=== PATIENT | female | born 1975 | race Native Hawaiian/Other Pacific Islander ===

== ENCOUNTER 2021-05-28 04:26 | Inpatient (IN) | payer SELFPAY ==
[~2021-05-28 04:26] MED LIST: BUPIVACAINE/PF (0.5%) 5 MG/1 ML 30 ML VIAL INFILTRATI ONE; LIDOCAINE (1%) 10 MG/1 ML VIAL 20 ML MDV INFILTRATI ONE; SODIUM CHLORIDE 0.9% IRR 1,500 ML BOTTLE IR ONE
[2021-05-28] MEDS ORDERED: ONDANSETRON 4 MG/2 ML INJ ONE ×2 (04:44→12:13)
[2021-05-28] MEDS ORDERED: SODIUM CHLORIDE 0.9% 1000 ML 1,000 ML ONE (04:45)
[2021-05-28] MEDS ORDERED: MORPHINE 4 MG/1 ML INJ ONE (04:45)
[2021-05-28] MEDS ORDERED: SODIUM CHLORIDE 0.9% 1000 ML 1,000 ML IV ONE (05:11)
[2021-05-28] MEDS ORDERED: MORPHINE 4 MG/1 ML INJ IV ONE (05:11)
[2021-05-28] MEDS ORDERED: ONDANSETRON 4 MG/2 ML INJ IV ONE ×2 (05:11→06:25)
[2021-05-28 05:18] LABS: Basophils # (Auto) 0.1 K/mm3 (0.0-0.1); Basophils % (Auto) 0.4 % (0.0-1.8); Eosinophils # (Auto) 0.2 K/mm3 (0.0-0.4); Eosinophils % (Auto) 1.4 % (0.0-4.3); Hematocrit 40.9 % (30.3-42.9); Hemoglobin 13.7 gm/dl (10.1-14.3); Lymphocytes # (Auto) 2.2 K/mm3 (1.2-5.4); Lymphocytes % (Auto) 16.9 % (13.4-35.0); Mean Corpuscular HGB Conc 33 % (30-34); Mean Corpuscular Volume 87 fl (79-97); Monocytes # (Auto) 0.6 K/mm3 (0.0-0.8); Monocytes % (Auto) 4.7 % (0.0-7.3); Platelet Count 387 K/mm3 (140-440); Red Cell Distribution Width 13.7 % (13.2-15.2)
[2021-05-28 05:30] LABS: Alanine Aminotransferase 19 units/L (7-56); Albumin 4.4 g/dL (3.9-5); Blood Urea Nitrogen 14 mg/dL (7-17); Calcium 8.8 mg/dL (8.4-10.2); Hemolysis Index 51
--- NOTE | 2021-05-28 05:37 | XRay Report ---
LEFT WRIST 3 VIEWS INDICATION / CLINICAL INFORMATION: pain on use palpation COMPARISON: None available. FINDINGS: BONES / JOINT(S): No acute fracture or subluxation. No significant arthritis. SOFT TISSUES: No significant abnormality. ADDITIONAL FINDINGS: None. Signer Name: Hi Echavarria MD Signed: 05/28/2021 5:32 AM Workstation Name: [id number]
[2021-05-28 05:43] LABS: BUN/Creatinine Ratio 23
--- NOTE | 2021-05-28 06:19 | Cat Scan Report ---
CT ABDOMEN AND PELVIS WITH IV CONTRAST INDICATION: R.L.Q. abdominal pain with nausea and vomiting. COMPARISON: None available. TECHNIQUE: All CT scans at this facility use dose modulation, automated exposure control, iterative reconstructi on or weight based dosing, when appropriate, to reduce radiation dose to as low as reasonably achieva ble. FINDINGS: Lung Bases: No significant abnormality. Skeletal System: No acute abnormality. ABDOMEN: Liver: No significant abnormality. Gallbladder: Several small gallstones are noted. Bile Ducts: No significant abnormality. Adrenals: No significant abnormality. Right Kidney: No significant abnormality. Left Kidney: No significant abnormality. Pancreas: No significant abnormality. Spleen: No significant abnormality. Upper GI tract: No significant abnormality. Lymph Nodes: No significant adenopathy. Aorta: No significant abnormality. Additional Findings: No significant abnormality. PELVIS: Colon: No significant abnormality. Urinary Bladder and Distal Ureters: No significant abnormality. Appendix: No significant abnormality. Lymph Nodes: No significant adenopathy. Additional Findings: There are 2 enhancing foci within the within the anterior uterine fundus, likely fibroids. IMPRESSION: 1. No acute process in the abdomen or pelvis. 2. Incidental findings, as above. Signer Name: Hi Echavarria MD Signed: 05/28/2021 6:14 AM Workstation Name: [id number]
[2021-05-28] MEDS ORDERED: HYDROmorphone 1 MG/1 ML INJ IV ONE (06:25)
--- NOTE | 2021-05-28 06:30 | Emergency Department Report ---
ED Abdominal Pain HPI - General Chief Complaint: Abdominal Pain Stated Complaint: ABD PAIN/POSS GALLBLADDER Time Seen by Provider: 05/28/21 06:13 Source: patient, family Mode of arrival: Ambulatory Limitations: No Limitations - History of Present Illness Initial Comments: 46-year-old female presents to the ER today with complaints of upper abdominal pain mostly right upper quadrant. Onset last night. Patient states that the pain has been constant and radiates into her back. She reports nausea with multiple episodes of vomiting. She denies any bowel changes. She reports mild dysuria, but no other UTI symptoms. She denies any chest pain or shortness of breath. She denies any fever or chills. She reports similar symptoms in the past about 2 to 3 years ago and she was diagnosed with gallstones but she never followed up with a general surgeon. She is currently on her menstrual cycle. MD Complaint: abdominal pain -: Last night Severity scale (0 -10): 5 - Related Data Allergies Allergy/AdvReac Type Severity Reaction Status Date / Time No Known Allergies Allergy Verified 05/28/21 08:54 ED Review of Systems ROS: Stated complaint: ABD PAIN/POSS GALLBLADDER Other details as noted in HPI Comment: All other systems reviewed and negative Constitutional: denies: chills, fever ENT: denies: ear pain, throat pain Respiratory: denies: cough, shortness of breath, wheezing Cardiovascular: denies: chest pain, palpitations Gastrointestinal: abdominal pain, nausea, vomiting. denies: diarrhea, constipation, hematemesis, melena, hematochezia Genitourinary: denies: urgency, dysuria, frequency, hematuria, discharge, abnormal menses, dyspareunia Musculoskeletal: denies: back pain, joint swelling, arthralgia, myalgia Skin: denies: rash, lesions, change in color, change in hair/nails, pruritus Neurological: denies: headache, weakness, numbness, paresthesias, confusion, abnormal gait, vertigo Psychiatric: denies: anxiety, depression, auditory hallucinations, visual hallucinations, homicidal thoughts, suicidal thoughts Hematological/Lymphatic: denies: easy bleeding, easy bruising, swollen glands ED Past Medical Hx - Past Medical History Previous Medical History?: No - Surgical History Past Surgical History?: Yes Additional Surgical History: C-Sec x 2 ED Physical Exam - General Limitations: No Limitations General appearance: alert, in distress (Patient appears to be uncomfortable and in pain) - Eye Eye exam: Present: normal appearance, PERRL, EOMI Pupils: Present: normal accommodation - Neck Neck exam: Present: normal inspection, full ROM - Respiratory Respiratory exam: Absent: respiratory distress - Cardiovascular Cardiovascular Exam: Present: regular rate - GI/Abdominal GI/Abdominal exam: Present: soft, tenderness (Moderate tenderness to the right upper quadrant epigastric area with some mild guarding but no rebound), g uarding. Absent: distended, rebound, rigid - Back Exam Back exam: Present: normal inspection - Neurological Exam Neurological exam: Present: alert, oriented X3, CN II-XII intact, normal gait - Psychiatric Psychiatric exam: Present: normal affect, normal mood - Skin Skin exam: Present: intact ED Course Vital Signs 05/28/21 05/28/21 05/28/21 04:32 06:37 08:50 Temperature 97.6 F Pulse Rate 70 Respiratory 18 16 Rate Blood Pressure 131/80 [Right] O2 Sat by Pulse 99 99 Oximetry 05/28/21 05/28/21 09:13 09:39 Temperature Pulse Rate 63 63 Respiratory 16 15 Rate Blood Pressure 117/65 117/85 [Right] O2 Sat by Pulse 99 98 Oximetry ED Medical Decision Making - Lab Data Result diagrams: 05/28/21 04:57 05/28/21 04:57 Laboratory Tests 05/28/21 05/28/21 05/28/21 04:57 04:57 04:57 WBC 13.2 H RBC 4.70 Hgb 13.7 Hct 40.9 MCV 87 MCH 29 MCHC 33 RDW 13.7 Plt Count 387 Lymph % (Auto) 16.9 [place] % (Auto) 4.7 Eos % (Auto) 1.4 Baso % (Auto) 0.4 Lymph # (Auto) 2.2 [place] # (Auto) 0.6 Eos # (Auto) 0.2 Baso # (Auto) 0.1 Seg Neutrophils % 76.6 H Seg Neutrophils # 10.1 H Sodium 138 Potassium 4.2 Chloride 103.9 Carbon Dioxide 17 L Anion Gap 21 BUN 14 Creatinine 0.6 Estimated GFR > 60 BUN/Creatinine Ratio 23 Glucose 121 H Calcium 8.8 Total Bilirubin 0.20 AST 20 ALT 19 Alkaline Phosphatase 72 Total Protein 7.7 Albumin 4.4 Albumin/Globulin Ratio 1.3 Lipase HCG, Quant < 2 05/28/21 04:57 WBC RBC Hgb Hct MCV MCH MCHC RDW Plt Count Lymph % (Auto) [place] % (Auto) Eos % (Auto) Baso % (Auto) Lymph # (Auto) [place] # (Auto) Eos # (Auto) Baso # (Auto) Seg Neutrophils % Seg Neutrophils # Sodium Potassium Chloride Carbon Dioxide Anion Gap BUN Creatinine Estimated GFR BUN/Creatinine Ratio Glucose Calcium Total Bilirubin AST ALT Alkaline Phosphatase Total Protein Albumin Albumin/Globulin Ratio Lipase 63 H HCG, Quant - Radiology Data Patient: JANES VARELA MR#: [id number] : 1975 Acct:[id number] Age/Sex: 46 / F ADM Date: 05/28/21 Loc: ED Attending Dr: Ordering Physician: ARA JEAN Date of Service: 05/28/21 Procedure(s): CT abdomen pelvis w con Accession Number(s): [id number] cc: ARA JEAN CT ABDOMEN AND PELVIS WITH IV CONTRAST INDICATION: R.L.Q. abdominal pain with nausea and vomiting. COMPARISON: None available. TECHNIQUE: All CT scans at this facility use dose modulation, automated exposure control, iterative reconstruction or weight based dosing, when appropriate, to reduce radiation dose to as low as reasonably achievable. FINDINGS: Lung Bases: No significant abnormality. Skeletal System: No acute abnormality. ABDOMEN: Liver: No significant abnormality. Gallbladder: Several small gallstones are noted. Bile Ducts: No significant abnormality. Adrenals: No significant abnormality. Right Kidney: No significant abnormality. Left Kidney: No significant abnormality. Pancreas: No significant abnormality. Spleen: No significant abnormality. Upper GI tract: No significant abnormality. Lymph Nodes: No significant adenopathy. Aorta: No significant abnormality. Additional Findings: No significant abnormality. PELVIS: Colon: No significant abnormality. Urinary Bladder and Distal Ureters: No significant abnormality. Appendix: No significant abnormality. Lymph Nodes: No significant adenopathy. Additional Findings: There are 2 enhancing foci within the within the anterior uterine fundus, likely fibroids. IMPRESSION: 1. No acute process in the abdomen or pelvis. 2. Incidental findings, as above. Signer Name: Hi Echavarria MD Signed: 05/28/2021 6:14 AM Workstation Name: [id number] Transcribed By: CARMEN Dictated By: Hi Echavarria MD Electronically Authenticated By: Hi Echavarria MD Signed Date/Time: 05/28/2114 DD/ 8 TD/TT: Patient: JANES VARELA MR#: [id number] : 1975 Acct:[id number] Age/Sex: 46 / F ADM Date: 05/28/21 Loc: ED Attending Dr: Ordering Physician: BROOKE INIGUEZ Date of Service: 05/28/21 Procedure(s): US abdomen limited Accession Number(s): [id number] cc: BROOKE INIGUEZ ULTRASOUND ABDOMEN, LIMITED (RIGHT UPPER QUADRANT) INDICATION / CLINICAL INFORMATION: severe RUQ pain. COMPARISON: CT earlier today. FINDINGS: PANCREAS: Visualized portion shows no significant abnormality. LIVER: No significant abnormality. Normal hepatopedal blood flow in the main portal vein. GALLBLADDER: There are multiple small gallstones. BILE DUCTS: No significant abnormality. Common bile duct measures 7 mm. FREE FLUID: None. ADDITIONAL FINDINGS: None. IMPRESSION: 1. Cholelithiasis. No gallbladder wall edema or pericholecystic fluid. 2. The scale manager measured the common duct at 7 mm. However, on the CT from earlier the same day, the common duct is normal in caliber. Signer Name: Hi Echavarria MD Signed: 05/28/2021 7:23 AM Workstation Name: [id number] Transcribed By: Dictated By: Hi Echavarria MD Electronically Authenticated By: Hi Echavarria MD Signed Date/Time: 05/28/2123 DD/ 0 TD/TT: - Medical Decision Making 0628: Labs, meds and CT ordered as part of MSE screening prior to me seeing the patient. Labs reviewed showed mild leukocytosis, but otherwise unremarkable; CT abd and pelvis with IV contrast shows multiple gallstones but otherwise unremarkable. Patient did receive IV morphine and Zofran which she states did help initially but she states that the pain has returned and she does appear to be uncomfortable and in pain. Dilaudid 1 mg IV as well as Zofran 4 mg ordered and gallbladder ultrasound ordered. 0745: Gallbladder ultrasound reviewedCholelithiasis. No gallbladder wall edema or pericholecystic fluid. 2. The scale manager measured the common duct at 7 mm. However, on the CT from earlier the same day, the common duct is normal in caliber. 0759: Patient still in pain despite Dilaudid 1mg. Discussed case with Dr. Fleming, general surgeon java front end web developer, given patient pain is uncontrollable, there are multiple gallstones, and mildly elevated white count, patient will be admitted to the hospital and she will consult on patient for surgery. 0807: Discussed case with hospitalist Dr. Doshi, for admission. Critical care attestation.: If time is entered above; I have spent that time in minutes in the direct care of this critically ill patient, excluding procedure time. ED Disposition Clinical Impression: Cholelithiases, Leukocytosis, Abdominal pain Disposition: ADMITTED INPATIENT Is pt being admited?: Yes Does the pt Need Aspirin: No Time of Disposition: 07:39
[2021-05-28 06:36] LABS: Bilirubin,Urine NEG (Negative); Blood,Urine LG (Negative); Color,Urine Straw (Yellow); Mucus,Urine FEW /HPF; Protein,Urine <15 mg/dL mg/dL (Negative); Urobilinogen,Urine < 2.0 mg/dL (<2.0)
--- NOTE | 2021-05-28 07:28 | Ultrasound Report ---
ULTRASOUND ABDOMEN, LIMITED (RIGHT UPPER QUADRANT) INDICATION / CLINICAL INFORMATION: severe RUQ pain. COMPARISON: CT earlier today. FINDINGS: PANCREAS: Visualized portion shows no significant abnormality. LIVER: No significant abnormality. Normal hepatopedal blood flow in the main portal vein. GALLBLADDER: There are multiple small gallstones. BILE DUCTS: No significant abnormality. Common bile duct measures 7 mm. FREE FLUID: None. ADDITIONAL FINDINGS: None. IMPRESSION: 1. Cholelithiasis. No gallbladder wall edema or pericholecystic fluid. 2. The director property measured the common duct at 7 mm. However, on the CT from earlier the same day, th e common duct is normal in caliber. Signer Name: Hi Echavarria MD Signed: 05/28/2021 7:23 AM Workstation Name: [id number]
[2021-05-28] MEDS ORDERED: KETOROLAC 30 MG/1 ML INJ IV ONE (07:44)
--- NOTE | 2021-05-28 09:33 | History and Physical Report ---
History of Present Illness Date of examination: 05/28/21 Date of admission: 05/28/21 Chief complaint: Abdominal pain History of present illness: Patient is 46-year-old female with past medical history of x2, breast biopsy, presents to the ER today with complaints of upper abdominal pain mostly right upper quadrant. Onset last night. Patient states that the pain has been constant and radiates into her back. She reports nausea with multiple episodes of vomiting. She denies any bowel changes. She reports mild dysuria, but no other UTI symptoms. She denies any chest pain or shortness of breath. She denies any fever or chills. She reports similar symptoms in the past about 2 to 3 years ago and she was diagnosed with gallstones but she never followed up with a general surgeon. She is currently on her menstrual cycle. Based on the medications that she has on her which includes dicyclomine and Zofran it appears that she has been having repeated nausea vomiting for a few months now as the medication is dated for December of last year, with possible IBS hx although she is unable to confirm. Her is at the bedside and assisted with interpreting Past History Past Surgical History: , Other (Breast biopsy) Social history: full code Family history: no significant family history Medications and Allergies Allergies Allergy/AdvReac Type Severity Reaction Status Date / Time No Known Allergies Allergy Verified 05/28/21 08:54 Active Meds: Active Medications Acetaminophen (Acetaminophen 325 Mg Tab) 650 mg PO Q4H PRN PRN Reason: Pain MILD(1-3)/Fever >100.5/GARCIA Albuterol (Albuterol 2.5 Mg/3 Ml Nebu) 2.5 mg IH Q4HRT PRN PRN Reason: Shortness Of Breath Famotidine (Famotidine 20 Mg/2 Ml Inj) 10 mg IV BID WENDIE Heparin Sodium (Porcine) (Heparin 5,000 Unit/1 Ml Vial) 5,000 unit SUB-Q Q8HR WENDIE Dextrose/Sodium Chloride (D5/0.45ns) 1,000 mls @ 125 mls/hr IV DIRECT WENDIE Morphine Sulfate (Morphine 2 Mg/1 Ml Inj) 2 mg IV Q4H PRN PRN Reason: Pain, Moderate (4-6) Naloxone HCl (Naloxone 0.4 Mg/1 Ml Inj) 0.1 mg IV Q2MIN PRN PRN Reason: Res Rate </= 8 or 02 SAT < 92% Ondansetron HCl (Ondansetron 4 Mg/2 Ml Inj) 4 mg IV Q4H PRN PRN Reason: Nausea And Vomiting Sodium Chloride (Sodium Chloride 0.9% 10 Ml Flush Syringe) 10 ml IV BID WENDIE Sodium Chloride (Sodium Chloride 0.9% 10 Ml Flush Syringe) 10 ml IV PRN PRN PRN Reason: LINE FLUSH Review of Systems All systems: negative Gastrointestinal: abdominal pain, nausea, vomiting Exam - Physical Exam Narrative exam: VITAL SIGNS: Reviewed. GENERAL: The patient appears normally developed, Vital signs as documented. HEAD: No signs of head trauma. EYES: Pupils are equal. Extraocular motions intact. EARS: Hearing grossly intact. MOUTH: Oropharynx is normal. NECK: No adenopathy, no JVD. CHEST: Chest with clear breath sounds bilaterally. No wheezes, rales, or rhonchi. CARDIAC: Regular rate and rhythm. S1 and S2, without murmurs, gallops, or rubs. VASCULAR: No Edema. Peripheral pulses normal and equal in all extremities. ABDOMEN: Soft, tender right upper quadrant with mild guarding otherwise NON distended. No rebound or guarding, and no masses palpated. Bowel Sounds normal. MUSCULOSKELETAL: Good range of motion of all major joints. Extremities without clubbing, cyanosis or edema. NEUROLOGIC EXAM: Alert and oriented x 3 No focal sensory or strength deficits. Speech normal. Follows commands. PSYCHIATRIC: Mood normal. SKIN: detail exam as documented in skin assessment - Constitutional Vitals: Temp Pulse Resp BP Pulse Ox 97.6 F 63 16 117/65 99 05/28/21 04:32 05/28/21 09:13 05/28/21 09:13 05/28/21 09:13 05/28/21 09:13 Results - Labs CBC & Chem 7: 05/28/21 04:57 05/28/21 04:57 Labs: Laboratory Last Values WBC 13.2 K/mm3 (4.5-11.0) H 05/28/21 04:57 RBC 4.70 M/mm3 (3.65-5.03) 05/28/21 04:57 Hgb 13.7 gm/dl (10.1-14.3) 05/28/21 04:57 Hct 40.9 % (30.3-42.9) 05/28/21 04:57 MCV 87 fl (79-97) 05/28/21 04:57 MCH 29 pg (28-32) 05/28/21 04:57 MCHC 33 % (30-34) 05/28/21 04:57 RDW 13.7 % (13.2-15.2) 05/28/21 04:57 Plt Count 387 K/mm3 (140-440) 05/28/21 04:57 Lymph % (Auto) 16.9 % (13.4-35.0) 05/28/21 04:57 [place] % (Auto) 4.7 % (0.0-7.3) 05/28/21 04:57 Eos % (Auto) 1.4 % (0.0-4.3) 05/28/21 04:57 Baso % (Auto) 0.4 % (0.0-1.8) 05/28/21 04:57 Lymph # (Auto) 2.2 K/mm3 (1.2-5.4) 05/28/21 04:57 [place] # (Auto) 0.6 K/mm3 (0.0-0.8) 05/28/21 04:57 Eos # (Auto) 0.2 K/mm3 (0.0-0.4) 05/28/21 04:57 Baso # (Auto) 0.1 K/mm3 (0.0-0.1) 05/28/21 04:57 Seg Neutrophils % 76.6 % (40.0-70.0) H 05/28/21 04:57 Seg Neutrophils # 10.1 K/mm3 (1.8-7.7) H 05/28/21 04:57 Sodium 138 mmol/L (137-145) 05/28/21 04:57 Potassium 4.2 mmol/L (3.6-5.0) 05/28/21 04:57 Chloride 103.9 mmol/L (98-107) 05/28/21 04:57 Carbon Dioxide 17 mmol/L (22-30) L 05/28/21 04:57 Anion Gap 21 mmol/L 05/28/21 04:57 BUN 14 mg/dL (7-17) 05/28/21 04:57 Creatinine 0.6 mg/dL (0.6-1.2) 05/28/21 04:57 Estimated GFR > 60 ml/min 05/28/21 04:57 BUN/Creatinine Ratio 23 % 05/28/21 04:57 Glucose 121 mg/dL (65-100) H 05/28/21 04:57 Calcium 8.8 mg/dL (8.4-10.2) 05/28/21 04:57 Total Bilirubin 0.20 mg/dL (0.1-1.2) 05/28/21 04:57 AST 20 units/L (5-40) 05/28/21 04:57 ALT 19 units/L (7-56) 05/28/21 04:57 Alkaline Phosphatase 72 units/L (35-129) 05/28/21 04:57 Total Protein 7.7 g/dL (6.3-8.2) 05/28/21 04:57 Albumin 4.4 g/dL (3.9-5) 05/28/21 04:57 Albumin/Globulin Ratio 1.3 % 05/28/21 04:57 Lipase 63 units/L (13-60) H 05/28/21 04:57 HCG, Quant < 2 mIU/mL (0-4) 05/28/21 04:57 Urine Color Straw (Yellow) 05/28/21 Unknown Urine Turbidity Clear (Clear) 05/28/21 Unknown Urine pH 6.0 (5.0-7.0) 05/28/21 Unknown Ur Specific [place] 1.035 (1.003-1.030) H 05/28/21 Unknown Urine Protein <15 mg/dl mg/dL (Negative) 05/28/21 Unknown Urine Glucose (UA) Neg mg/dL (Negative) 05/28/21 Unknown Urine Ketones Neg mg/dL (Negative) 05/28/21 Unknown Urine Blood Lg (Negative) 05/28/21 Unknown Urine Nitrite Neg (Negative) 05/28/21 Unknown Urine Bilirubin Neg (Negative) 05/28/21 Unknown Urine Urobilinogen < 2.0 mg/dL (<2.0) 05/28/21 Unknown Ur Leukocyte Esterase Neg (Negative) 05/28/21 Unknown Urine WBC (Auto) 2.0 /HPF (0.0-6.0) 05/28/21 Unknown Urine RBC (Auto) 55.0 /HPF (0.0-6.0) 05/28/21 Unknown U Epithel Cells (Auto) 7.0 /HPF (0-13.0) 05/28/21 Unknown Urine Mucus Few /HPF 05/28/21 Unknown Assessment and Plan Assessment and plan: Patient is 46-year-old female with past medical history of x2, breast biopsy, presents to the ER today with complaints of upper abdominal pain mostly right upper quadrant. Onset last night. Patient states that the pain has been constant and radiates into her back. She reports nausea with multiple episodes of vomiting. She denies any bowel changes. She reports mild dysuria, but no other UTI symptoms. She denies any chest pain or shortness of breath. She denies any fever or chills. She reports similar symptoms in the past about 2 to 3 years ago and she was diagnosed with gallstones but she never followed up with a general surgeon. She is currently on her menstrual cycle. Based on the medications that she has on her which includes dicyclomine and Zofran it appears that she has been having repeated nausea vomiting for a few months now as the medication is dated for December of last year, with possible IBS hx although she is unable to confirm. Her is at the bedside and assisted with interpreting CT ABDOMEN AND PELVIS WITH IV CONTRAST 1. No acute process in the abdomen or pelvis. 2. Incidental findings, as above. " Showed several small gallstones" 1. Cholelithiasis. No gallbladder wall edema or pericholecystic fluid. 2. The label designer measured the common duct at 7 mm. However, on the CT from earlier the same day, the common duct is normal in caliber. US: Gallbladder ultrasound reviewed Cholelithiasis. No gallbladder wall edema or pericholecystic fluid. 2. The label designer measured the common duct at 7 mm. However, on the CT from earlier the same day, the common duct is normal in caliber. Abdominal pain with likely symptomatic cholelithiasis Cholelithiasis symptomatic Leukocytosis Systematic inflammatory response syndrome Metabolic acidosis Possible IBS Plan Admit to MedSurg Surgical consult Antiemetics Empiric antibiotics We will keep n.p.o. for possible surgery D5 normal saline for support Cultures Pain control Following surgical evaluation patient may benefit from GI evaluation this could be outpatient Plan of care discussed extensively with patient and DVT and GI prophylaxis Advance Directives: Yes Plan of care discussed with patient/family: Yes
[2021-05-28] MEDS ORDERED: AZITHROMYCIN/NS 500 MG/250 ML 500 MG/250 ML BAG IV SCH (10:00)
[2021-05-28] MEDS ORDERED: NALOXONE 0.4 MG/1 ML INJ IV PRN (10:00)
[2021-05-28] MEDS ORDERED: cefTRIAXone/NS 1 GM/50 ML 1 GM/50 ML BAG IV SCH (10:00)
[2021-05-28] MEDS ORDERED: ACETAMINOPHEN 325 MG TAB PO PRN (10:00)
--- NOTE | 2021-05-28 10:28 | Consultation ---
History of Present Illness Consult date: 05/28/21 Reason for consult: gallstones - History of present illness History of present illness: Presented to the emergency room with 2-day history of worsening right upper quadrant epigastric pain. She says she was diagnosed with gallstones several years ago but did not seek surgery at that time. About 3 months ago she began having mild right upper quadrant symptoms and she was instructed to go to the emergency room if the pain became worse. She is been having nausea and vomiting with last episode this morning. The pain is approximately 7-8 out of 10, and relieved when she does not move around. Patient had a CT scan which showed gallstones with no evidence of cholecystitis, and an ultrasound with similar findings. Past History Past Medical History: No medical history Past Surgical History: , Other (Breast biopsy) Social history: full code Family history: no significant family history Medications and Allergies Allergies Allergy/AdvReac Type Severity Reaction Status Date / Time No Known Allergies Allergy Verified 05/28/21 08:54 Active Meds: Active Medications Acetaminophen (Acetaminophen 325 Mg Tab) 650 mg PO Q4H PRN PRN Reason: Pain MILD(1-3)/Fever >100.5/GARCIA Albuterol (Albuterol 2.5 Mg/3 Ml Nebu) 2.5 mg IH Q4HRT PRN PRN Reason: Shortness Of Breath Famotidine (Famotidine 20 Mg/2 Ml Inj) 10 mg IV BID WENDIE Heparin Sodium (Porcine) (Heparin 5,000 Unit/1 Ml Vial) 5,000 unit SUB-Q Q8HR WENDIE Dextrose/Sodium Chloride (D5/0.45ns) 1,000 mls @ 125 mls/hr IV DIRECT WENDIE Ceftriaxone Sodium (Rocephin/Ns 1 Gm/50 Ml) 1 gm in 50 mls @ 100 mls/hr IV Q24H WENDIE; Protocol Azithromycin (Zithromax/Ns) 500 mg in 250 mls @ 250 mls/hr IV Q24H WENDIE Morphine Sulfate (Morphine 2 Mg/1 Ml Inj) 2 mg IV Q4H PRN PRN Reason: Pain, Moderate (4-6) Naloxone HCl (Naloxone 0.4 Mg/1 Ml Inj) 0.1 mg IV Q2MIN PRN PRN Reason: Res Rate </= 8 or 02 SAT < 92% Ondansetron HCl (Ondansetron 4 Mg/2 Ml Inj) 4 mg IV Q4H PRN PRN Reason: Nausea And Vomiting Sodium Chloride (Sodium Chloride 0.9% 10 Ml Flush Syringe) 10 ml IV BID WENDIE Sodium Chloride (Sodium Chloride 0.9% 10 Ml Flush Syringe) 10 ml IV PRN PRN PRN Reason: LINE FLUSH Review of Systems All systems: negative - Gastrointestinal abdominal pain, nausea, vomiting Exam Vital Signs Temp Pulse Resp BP Pulse Ox 97.6 F 70 18 131/80 99 05/28/21 04:32 05/28/21 04:32 05/28/21 04:32 05/28/21 04:32 05/28/21 04:32 - General physical appearance Positive: well developed, well nourished, no distress, moderate pain - Eyes Negative: icteric - Respiratory Positive: normal expansion, normal respiratory effort - Cardiovascular Heart Sounds: Present: S1 & S2 - Extremities Extremities: no ischemia - Abdomen Abdomen: Present: soft, other (Tender to palpation right upper quadrant epigastric area). Absent: guarding, rigid Results - Labs 05/28/21 04:57 05/28/21 04:57 Abnormal lab results 05/28/21 05/28/21 05/28/21 Range/Units 04:57 04:57 04:57 WBC 13.2 H (4.5-11.0) K/mm3 Seg Neutrophils % 76.6 H (40.0-70.0) % Seg Neutrophils # 10.1 H (1.8-7.7) K/mm3 Carbon Dioxide 17 L (22-30) mmol/L Glucose 121 H (65-100) mg/dL Lipase 63 H (13-60) units/L Ur Specific [place] (1.003-1.030) 05/28/21 Range/Units Unknown WBC (4.5-11.0) K/mm3 Seg Neutrophils % (40.0-70.0) % Seg Neutrophils # (1.8-7.7) K/mm3 Carbon Dioxide (22-30) mmol/L Glucose (65-100) mg/dL Lipase (13-60) units/L Ur Specific [place] 1.035 H (1.003-1.030) Diabetes panel 05/28/21 Range/Units 04:57 Sodium 138 (137-145) mmol/L Potassium 4.2 (3.6-5.0) mmol/L Chloride 103.9 (98-107) mmol/L Carbon Dioxide 17 L (22-30) mmol/L BUN 14 (7-17) mg/dL Creatinine 0.6 (0.6-1.2) mg/dL Glucose 121 H (65-100) mg/dL Calcium 8.8 (8.4-10.2) mg/dL AST 20 (5-40) units/L ALT 19 (7-56) units/L Alkaline Phosphatase 72 (35-129) units/L Total Protein 7.7 (6.3-8.2) g/dL Albumin 4.4 (3.9-5) g/dL Calcium panel 05/28/21 Range/Units 04:57 Calcium 8.8 (8.4-10.2) mg/dL Albumin 4.4 (3.9-5) g/dL Pituitary panel 05/28/21 Range/Units 04:57 Sodium 138 (137-145) mmol/L Potassium 4.2 (3.6-5.0) mmol/L Chloride 103.9 (98-107) mmol/L Carbon Dioxide 17 L (22-30) mmol/L BUN 14 (7-17) mg/dL Creatinine 0.6 (0.6-1.2) mg/dL Glucose 121 H (65-100) mg/dL Calcium 8.8 (8.4-10.2) mg/dL Adrenal panel 05/28/21 Range/Units 04:57 Sodium 138 (137-145) mmol/L Potassium 4.2 (3.6-5.0) mmol/L Chloride 103.9 (98-107) mmol/L Carbon Dioxide 17 L (22-30) mmol/L BUN 14 (7-17) mg/dL Creatinine 0.6 (0.6-1.2) mg/dL Glucose 121 H (65-100) mg/dL Calcium 8.8 (8.4-10.2) mg/dL Total Bilirubin 0.20 (0.1-1.2) mg/dL AST 20 (5-40) units/L ALT 19 (7-56) units/L Alkaline Phosphatase 72 (35-129) units/L Total Protein 7.7 (6.3-8.2) g/dL Albumin 4.4 (3.9-5) g/dL - Imaging CT scan - abdomen: report reviewed, image reviewed CT scan - pelvis: report reviewed, image reviewed US - abdomen: report reviewed, image reviewed Assessment and Plan 46-year-old female with symptomatic cholelithiasis possible cholecystitis. Patient is consented for laparoscopic cholecystectomy. Patient speaks some [place], however her is fluent in [place] and help facilitate the conversation. Patient for laparoscopic cholecystectomy today.
[2021-05-28] MEDS ORDERED: LIDOCAINE (1%) 10 MG/1 ML VIAL 20 ML MDV ONE (10:56)
[2021-05-28] MEDS ORDERED: BUPIVACAINE/PF (0.5%) 5 MG/1 ML 30 ML VIAL INFILTRATI ONE ×2 (10:56→12:04)
[2021-05-28] MEDS ORDERED: fentaNYL 100 MCG/2 ML INJ ONE (11:17)
[2021-05-28] MEDS ORDERED: MIDAZOLAM 2 MG/2 ML INJ ONE (11:17)
[2021-05-28] MEDS ORDERED: propofoL 200 MG/20 ML VIAL IV ONE (11:18)
[2021-05-28] MEDS ORDERED: ceFAZolin/Water 2 GM/20 ML 2 GM/20 ML SYRINGE IV ONE (11:25)
[2021-05-28] MEDS ORDERED: KETAMINE/STERILE WATER 50 MG/ML SYRINGE ONE (11:36)
[2021-05-28] MEDS ORDERED: ALBUTEROL 2.5 MG/3 ML NEBU IH PRN (12:00)
[2021-05-28] MEDS ORDERED: LIDOCAINE (1%) 10 MG/1 ML VIAL 20 ML MDV INFILTRATI ONE (12:04)
[2021-05-28] MEDS ORDERED: SODIUM CHLORIDE 0.9% IRR 1,500 ML BOTTLE IR ONE (12:04)
[2021-05-28] MEDS ORDERED: SODIUM CHLORIDE 0.9% IRRIG SOLN 2000 ML IR ONE (12:04)
[2021-05-28] MEDS ORDERED: dexAMETHasone 20 MG/5 ML VIAL ONE (12:12)
[2021-05-28] MEDS ORDERED: ROCURONIUM 50 MG/5 ML INJ IV ONE ×2 (12:13→14:28)
[2021-05-28] MEDS ORDERED: LACTATED RINGERS 1,000 ML ONE ×2 (12:13→14:28)
[2021-05-28] MEDS ORDERED: KETOROLAC 30 MG/1 ML INJ ONE (12:13)
[2021-05-28] MEDS ORDERED: HYDROmorphone 1 MG/1 ML INJ ONE (12:20)
[2021-05-28] MEDS ORDERED: SUGAMMADEX SODIUM 200 MG/2 ML VIAL IV ONE (14:39)
--- NOTE | 2021-05-28 15:30 | Anesthesia Consultation ---
Anesthesia Consult and Med Hx Date of service: 05/28/21 - Airway Anesthetic Teeth Evaluation: Good ROM Head & Neck: Adequate Mental/Hyoid Distance: Adequate Mallampati Class: Class II Intubation Access Assessment: Probably Good - Pre-Operative Health Status ASA Pre-Surgery Classification: ASA1 Proposed Anesthetic Plan: General - Pulmonary Hx Respiratory Symptoms: No - Cardiovascular System Hx Hypertension: No - Central Nervous System CVA: No - Endocrine Hx Renal Disease: No Hx Liver Disease: No Hx Insulin Dependent Diabetes: No Hx Non-Insulin Dependent Diabetes: No Hx Thyroid Disease: No - Other Systems Hx Obesity: No
--- NOTE | 2021-05-28 15:31 | Operative Report ---
Operative Report Operative Report: Procedure Performed: Lap cholecystectomy Dates of Service: 05/28/2021 Primary Surgeon: Chencho Fleming MD Assisted by: Lety Tolbert DO Anesthesia: General Pre-Operative Diagnosis: cholelithiasis/ cholecystitis Post-Operative Diagnosis: Same Indications for Procedure: 41-year-old female presented to the emergency room with right upper quadrant epigastric pain. CT scan abdominal ultrasound showed cholelithiasis with cholecystitis. Patient was consented for laparoscopic chol ecystectomy. Description of Procedure(s): The patient was brought to the operating room and underwent general anesthesia after lower extremity SCD were placed. The abdomen was prepped and draped in the standard fashion. IV antibiotics were given and a time out was performed. Using a veress needle via a stab incision in the left subcostal region, the abdomen was insuflated to a pressure of 15mmHg. Using optivew technique, a 5mm trocar was placed just superior and to the left of the umbilicus. There was no gross injury noted to any intra-abdominal structures. After which working trocars were placed under direct visualization. A 12 mm trocar was placed in the epigastrium, and two more 5 mm trocars were inserted in the right lateral sites. The gallbladder was located and grasped at the fundus and retracted up toward the patient's right shoulder. The infundibulum was grasped and retracted laterally. There was significant gallbladder wall thickening. The gallbladder was noted to be intrahepatic resulting in significant bleeding from both the liver bed and blood vessels on the serosa of the gallbladder. Due to difficulty with visualization due to bleeding we decided to do a dome down technique. The gallbladder was from the liver bed starting distal to proximal. Hemostasis was controlled with a combination of harmonic scalpel, electrocautery, and Surgicel. Once we were down to the gallbladder cystic duct junction it was noted to be dilated. We did not want to go more proximal and endanger the common bile duct and other critical structures. We used an endoscopic stapler to transect the gallbladder just under the infundibulum. There was one sliver of duct on the medial aspect that was secured within Endoloop, and then transected with scissors. The end ocatch bag was placed in the abdomen and the gallbladder was then removed from the abdomen. The liver bed was examined and the trocars removed under direct visualization. The insufflation was then terminated. The epigastric incision was closed with a 0 Vicryl suture using a suture passer device. The skin incisions were closed using 4-0 Monocryl sutures. All the wounds dressed with dermabond. The patient tolerated the procedure well, was extubated and taken to the recovery room in satisfactory condition. Finding(s): An inflamed gallbladder that was partially intrahepatic Intra-Operative Complications: none Specimens Removed: Gallbladder Estimated Blood Loss: ~200ml Complications: none immediate
--- NOTE | 2021-05-28 15:31 | Anesthesia Day of Surgery ---
Anesthesia Day of Surgery - Day of Surgery Patient Examined: Yes Patient H&P Reviewed: Yes Patient is NPO: Yes
[2021-05-28] MEDS: D5W/0.45% NACL 1,000 ML IV SCH (17:01)
[2021-05-28] MEDS: KETOROLAC 30 MG/1 ML INJ IV SCH (17:08)
[2021-05-28] MEDS: MORPHINE 2 MG/1 ML INJ IV PRN (20:12)
[2021-05-28] MEDS: ONDANSETRON 4 MG/2 ML INJ IV PRN (20:12)
[2021-05-28] MEDS: FAMOTIDINE 20 MG/2 ML INJ IV SCH ×2 (23:58→23:59)
[2021-05-29] MEDS: HEPARIN 5,000 UNIT/1 ML VIAL SUB-Q SCH ×5 (00:02→21:21)
[2021-05-29] MEDS: KETOROLAC 30 MG/1 ML INJ IV SCH ×4 (00:08→18:12)
[2021-05-29] MEDS: ONDANSETRON 4 MG/2 ML INJ IV PRN ×2 (02:12→18:24)
[2021-05-29] MEDS: MORPHINE 2 MG/1 ML INJ IV PRN ×2 (02:13→21:24)
[2021-05-29 06:03] LABS: Basophils % (Auto) 0.3 % (0.0-1.8); Eosinophils % (Auto) 0.1 % (0.0-4.3); Hemoglobin 11.8 gm/dl (10.1-14.3); Lymphocytes # (Auto) 2.2 K/mm3 (1.2-5.4); Lymphocytes % (Auto) 13.7 % (13.4-35.0); Mean Corpuscular HGB Conc 33 % (30-34); Mean Corpuscular Volume 88 fl (79-97); Monocytes # (Auto) 1.3 K/mm3 (0.0-0.8); Monocytes % (Auto) 8.4 % (0.0-7.3); Platelet Count 354 K/mm3 (140-440); Red Blood Count 4.08 M/mm3 (3.65-5.03); Red Cell Distribution Width 13.8 % (13.2-15.2)
[2021-05-29 06:12] LABS: Alanine Aminotransferase 70 units/L (7-56); Albumin 3.6 g/dL (3.9-5); Blood Urea Nitrogen 11 mg/dL (7-17); Calcium 8.2 mg/dL (8.4-10.2); Hemolysis Index 9
[2021-05-29 06:17] LABS: BUN/Creatinine Ratio 16
[2021-05-29] MEDS: FAMOTIDINE 20 MG TAB PO SCH ×2 (10:25→21:21)
--- NOTE | 2021-05-29 12:47 | Progress Note ---
Hospitalist Physical - Constitutional Vitals: Temp Pulse Resp BP Pulse Ox 99.1 F 83 22 110/59 97 05/29/21 11:46 05/29/21 11:46 05/29/21 11:46 05/29/21 11:46 05/29/21 11:46 Results - Labs CBC & Chem 7: 05/29/21 05:32 05/29/21 05:32 Labs: Laboratory Last Values WBC 15.8 K/mm3 (4.5-11.0) H 05/29/21 05:32 RBC 4.08 M/mm3 (3.65-5.03) 05/29/21 05:32 Hgb 11.8 gm/dl (10.1-14.3) 05/29/21 05:32 Hct 36.0 % (30.3-42.9) 05/29/21 05:32 MCV 88 fl (79-97) 05/29/21 05:32 MCH 29 pg (28-32) 05/29/21 05:32 MCHC 33 % (30-34) 05/29/21 05:32 RDW 13.8 % (13.2-15.2) 05/29/21 05:32 Plt Count 354 K/mm3 (140-440) 05/29/21 05:32 Lymph % (Auto) 13.7 % (13.4-35.0) 05/29/21 05:32 [place] % (Auto) 8.4 % (0.0-7.3) H 05/29/21 05:32 Eos % (Auto) 0.1 % (0.0-4.3) 05/29/21 05:32 Baso % (Auto) 0.3 % (0.0-1.8) 05/29/21 05:32 Lymph # (Auto) 2.2 K/mm3 (1.2-5.4) 05/29/21 05:32 [place] # (Auto) 1.3 K/mm3 (0.0-0.8) H 05/29/21 05:32 Eos # (Auto) 0.0 K/mm3 (0.0-0.4) 05/29/21 05:32 Baso # (Auto) 0.0 K/mm3 (0.0-0.1) 05/29/21 05:32 Seg Neutrophils % 77.5 % (40.0-70.0) H 05/29/21 05:32 Seg Neutrophils # 12.2 K/mm3 (1.8-7.7) H 05/29/21 05:32 Sodium 140 mmol/L (137-145) 05/29/21 05:32 Potassium 4.2 mmol/L (3.6-5.0) 05/29/21 05:32 Chloride 107.8 mmol/L (98-107) H 05/29/21 05:32 Carbon Dioxide 19 mmol/L (22-30) L 05/29/21 05:32 Anion Gap 17 mmol/L 05/29/21 05:32 BUN 11 mg/dL (7-17) 05/29/21 05:32 Creatinine 0.7 mg/dL (0.6-1.2) 05/29/21 05:32 Estimated GFR > 60 ml/min 05/29/21 05:32 BUN/Creatinine Ratio 16 % 05/29/21 05:32 Glucose 129 mg/dL (65-100) H 05/29/21 05:32 Calcium 8.2 mg/dL (8.4-10.2) L 05/29/21 05:32 Total Bilirubin 0.30 mg/dL (0.1-1.2) 05/29/21 05:32 AST 56 units/L (5-40) H 05/29/21 05:32 ALT 70 units/L (7-56) H 05/29/21 05:32 Alkaline Phosphatase 55 units/L (35-129) 05/29/21 05:32 Total Protein 6.6 g/dL (6.3-8.2) 05/29/21 05:32 Albumin 3.6 g/dL (3.9-5) L 05/29/21 05:32 Albumin/Globulin Ratio 1.2 % 05/29/21 05:32 Lipase 63 units/L (13-60) H 05/28/21 04:57 HCG, Quant < 2 mIU/mL (0-4) 05/28/21 04:57 Urine Color Straw (Yellow) 05/28/21 Unknown Urine Turbidity Clear (Clear) 05/28/21 Unknown Urine pH 6.0 (5.0-7.0) 05/28/21 Unknown Ur Specific [place] 1.035 (1.003-1.030) H 05/28/21 Unknown Urine Protein <15 mg/dl mg/dL (Negative) 05/28/21 Unknown Urine Glucose (UA) Neg mg/dL (Negative) 05/28/21 Unknown Urine Ketones Neg mg/dL (Negative) 05/28/21 Unknown Urine Blood Lg (Negative) 05/28/21 Unknown Urine Nitrite Neg (Negative) 05/28/21 Unknown Urine Bilirubin Neg (Negative) 05/28/21 Unknown Urine Urobilinogen < 2.0 mg/dL (<2.0) 05/28/21 Unknown Ur Leukocyte Esterase Neg (Negative) 05/28/21 Unknown Urine WBC (Auto) 2.0 /HPF (0.0-6.0) 05/28/21 Unknown Urine RBC (Auto) 55.0 /HPF (0.0-6.0) 05/28/21 Unknown U Epithel Cells (Auto) 7.0 /HPF (0-13.0) 05/28/21 Unknown Urine Mucus Few /HPF 05/28/21 Unknown [place]/IV: Voiding Method Toilet Active Medications - Current Medications Current Medications: Generic Name Dose Route Start Last Admin Trade Name Freq PRN Reason Stop Dose Admin Acetaminophen 650 mg 05/28/21 10:00 Acetaminophen 325 Mg Tab PO Q4H PRN Pain MILD(1-3)/Fever >100.5/GARCIA Albuterol 2.5 mg 05/28/21 12:00 Albuterol 2.5 Mg/3 Ml Nebu IH Q4HRT PRN Shortness Of Breath Famotidine 20 mg 05/29/21 10:00 05/29/21 10:25 Famotidine 20 Mg Tab PO 20 mg BID WENDIE Administration Heparin Sodium (Porcine) 5,000 unit 05/28/21 14:00 05/29/21 06:13 Heparin 5,000 Unit/1 Ml Vial SUB-Q 5,000 unit Q8HR WENDIE Administration Dextrose/Sodium Chloride 1,000 mls @ 125 mls/hr 05/28/21 10:00 05/28/21 17:01 D5/0.45ns IV 125 mls/hr DIRECT WENDIE Administration Levofloxacin/Dextrose 750 mg in 150 mls @ 100 mls/hr 05/28/21 18:00 05/28/21 17:01 Levaquin 750mg/150ml IV 100 mls/hr Q24H WENDIE Administration Protocol Ketorolac Tromethamine 15 mg 05/28/21 18:00 05/29/21 06:13 Ketorolac 30 Mg/1 Ml Inj IV 06/02/21 17:59 15 mg Q6H WENDIE Administration Morphine Sulfate 2 mg 05/28/21 10:00 05/29/21 02:13 Morphine 2 Mg/1 Ml Inj IV 2 mg Q4H PRN Administration Pain, Moderate (4-6) Naloxone HCl 0.1 mg 05/28/21 10:00 Naloxone 0.4 Mg/1 Ml Inj IV Q2MIN PRN Res Rate </= 8 or 02 SAT < 92% Ondansetron HCl 4 mg 05/28/21 10:00 05/29/21 02:12 Ondansetron 4 Mg/2 Ml Inj IV 4 mg Q4H PRN Administration Nausea And Vomiting Oxycodone/Acetaminophen 2 tab 05/28/21 16:44 Oxycodone /Acetaminophen 5-325mg Tab PO Q4H PRN Pain, Moderate (4-6) Sodium Chloride 10 ml 05/28/21 10:00 05/29/21 10:26 Sodium Chloride 0.9% 10 Ml Flush Syringe IV 10 ml BID WENDIE Administration Sodium Chloride 10 ml 05/28/21 10:00 Sodium Chloride 0.9% 10 Ml Flush Syringe IV PRN PRN LINE FLUSH
[2021-05-29] MEDS: D5W/0.45% NACL 1,000 ML IV SCH (13:23)
--- NOTE | 2021-05-29 13:26 | Progress Note ---
Assessment and Plan POD#1 s/p lap ronny for cholelithiasis/ cholecystitis. Afebrile and stable. since pt had significant inflammation from cholecystits, would discharge with 3- 5 day course abx. Pt can follow up in the office with me in two weeks. she can shower and advance diet and exercise as tolerated. Subjective Date of service: 05/29/21 Narrative: No acute events overnight. Pt says she feels ok but is having some post surgical pain. Denies nausea or vomiting. Objective Vital Signs - 12hr 05/29/21 05/29/21 05/29/21 04:39 09:44 11:46 Temperature 98.4 F 99.1 F Pulse Rate 84 83 Respiratory 16 22 Rate Blood Pressure 106/62 110/59 O2 Sat by Pulse 96 96 97 Oximetry - General physical appearance no distress, moderate pain - Eyes PERRL - Respiratory normal expansion, normal respiratory effort - Abdomen soft, other (incisions c/d/i, appropriately tender to palpation) - Labs 05/29/21 05:32 05/29/21 05:32 Diabetes panel 05/29/21 Range/Units 05:32 Sodium 140 (137-145) mmol/L Potassium 4.2 (3.6-5.0) mmol/L Chloride 107.8 H (98-107) mmol/L Carbon Dioxide 19 L (22-30) mmol/L BUN 11 (7-17) mg/dL Creatinine 0.7 (0.6-1.2) mg/dL Glucose 129 H (65-100) mg/dL Calcium 8.2 L (8.4-10.2) mg/dL AST 56 H (5-40) units/L ALT 70 H (7-56) units/L Alkaline Phosphatase 55 (35-129) units/L Total Protein 6.6 (6.3-8.2) g/dL Albumin 3.6 L (3.9-5) g/dL Calcium panel 05/29/21 Range/Units 05:32 Calcium 8.2 L (8.4-10.2) mg/dL Albumin 3.6 L (3.9-5) g/dL Pituitary panel 05/29/21 Range/Units 05:32 Sodium 140 (137-145) mmol/L Potassium 4.2 (3.6-5.0) mmol/L Chloride 107.8 H (98-107) mmol/L Carbon Dioxide 19 L (22-30) mmol/L BUN 11 (7-17) mg/dL Creatinine 0.7 (0.6-1.2) mg/dL Glucose 129 H (65-100) mg/dL Calcium 8.2 L (8.4-10.2) mg/dL Adrenal panel 05/29/21 Range/Units 05:32 Sodium 140 (137-145) mmol/L Potassium 4.2 (3.6-5.0) mmol/L Chloride 107.8 H (98-107) mmol/L Carbon Dioxide 19 L (22-30) mmol/L BUN 11 (7-17) mg/dL Creatinine 0.7 (0.6-1.2) mg/dL Glucose 129 H (65-100) mg/dL Calcium 8.2 L (8.4-10.2) mg/dL Total Bilirubin 0.30 (0.1-1.2) mg/dL AST 56 H (5-40) units/L ALT 70 H (7-56) units/L Alkaline Phosphatase 55 (35-129) units/L Total Protein 6.6 (6.3-8.2) g/dL Albumin 3.6 L (3.9-5) g/dL
[2021-05-30] MEDS: KETOROLAC 30 MG/1 ML INJ IV SCH ×3 (01:14→13:08)
[2021-05-30] MEDS: oxyCODONE /ACETAMINOPHEN 5-325MG TAB PO PRN ×2 (01:15→09:07)
[2021-05-30 05:14] LABS: Hematocrit 31.9 % (30.3-42.9); Hemoglobin 10.9 gm/dl (10.1-14.3); Mean Corpuscular HGB Conc 34 % (30-34); Mean Corpuscular Volume 88 fl (79-97); Platelet Count 291 K/mm3 (140-440); Red Blood Count 3.62 M/mm3 (3.65-5.03)
[2021-05-30] MEDS: HEPARIN 5,000 UNIT/1 ML VIAL SUB-Q SCH (05:38)
[2021-05-30 05:41] LABS: Alanine Aminotransferase 45 units/L (7-56); Albumin 3.4 g/dL (3.9-5); Blood Urea Nitrogen 14 mg/dL (7-17); Calcium 7.8 mg/dL (8.4-10.2); Hemolysis Index 5
[2021-05-30 05:42] LABS: BUN/Creatinine Ratio 23
--- NOTE | 2021-05-30 08:52 | Discharge Summary ---
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 Fleming in clinic within 2 weeks. Please belt picker and take the antibiotics as they are prescribed to you. If you you have worsening abdominal pain or bleeding from your surgical sites, please return to the ED. Follow up with: YOVANY GOODMAN MD [Primary Care Provider] - 7 Days JAY FLEMING MD [Staff Physician] - 14 Days Prescriptions: levoFLOXacin [Levaquin] 750 mg PO QDAY 5 Days #5 tablet Ketorolac [Toradol] 10 mg PO Q6H PRN 3 Days #12 tab PRN Reason: Pain
[2021-05-30] MEDS: FAMOTIDINE 20 MG TAB PO SCH (09:47)
[2021-05-30 13:03] VITALS: BP 104/57
== END 2021-05-30 12:50 | disposition home or self-care (01) | DRG 418 ==
LOC: ED 04:26 → 3A 09:31
PROVIDERS: ADMIT Internal Medicine; ATTEND Student in an Organized Health Care Education/Training Program
PROC: 0FT44ZZ Resection of Gallbladder, Percutaneous Endoscopic Approach (ICD-10-PCS; principal; 2021-05-28)
DX: K80.00 Calculus of gallbladder with acute cholecystitis without obstruction (principal); R65.10 Systemic inflammatory response syndrome (SIRS) of non-infectious origin without acute organ dysfunction; E87.2 Acidosis
CPT/HCPCS: 36415; 74177; 76705; 80053; 81001; 83690; 84702; 85025; 85027; 88304; G0378; J3490; J7070; J7120; Q0162; J0690; J1100; J1170; J1644; J1885; J1956; J2250; J2270; J2405; J2704; J3010; J7030; Q9967

== ENCOUNTER 2021-06-13 17:35 | Outpatient (CLI) | payer SELFPAY ==
[2021-06-14 17:15] LABS: Basophils # (Auto) 0.1 K/mm3 (0.0-0.1); Basophils % (Auto) 0.5 % (0.0-1.8); Eosinophils # (Auto) 0.4 K/mm3 (0.0-0.4); Eosinophils % (Auto) 4.1 % (0.0-4.3); Hemoglobin 12.1 gm/dl (10.1-14.3); Lymphocytes % (Auto) 28.9 % (13.4-35.0); Mean Corpuscular HGB Conc 33 % (30-34); Mean Corpuscular Volume 88 fl (79-97); Monocytes # (Auto) 0.5 K/mm3 (0.0-0.8); Monocytes % (Auto) 5.2 % (0.0-7.3); Platelet Count 392 K/mm3 (140-440); Red Blood Count 4.22 M/mm3 (3.65-5.03); Red Cell Distribution Width 13.6 % (13.2-15.2)
[2021-06-14 17:38] LABS: Alanine Aminotransferase 11 units/L (7-56); Albumin 3.7 g/dL (3.9-5); Blood Urea Nitrogen 16 mg/dL (7-17); Calcium 8.7 mg/dL (8.4-10.2); Hemolysis Index 19
[2021-06-14 17:41] LABS: BUN/Creatinine Ratio 27
== END 2021-06-13 17:36 | disposition home or self-care (01) ==
LOC: LAB 17:35
PROVIDERS: ATTEND Surgery
DX: R10.9 Unspecified abdominal pain (principal)
CPT/HCPCS: 36415; 80053; 85025